=== PATIENT | female | born 1990 | race Caucasian/White ===

== ENCOUNTER 2018-10-04 20:25 | Emergency (ER) | payer MEDICAID, OTHER ==
[2018-10-04 20:34] VITALS: BP 123/80; PULSE 88; RESP 16; TEMP 98.4; O2SAT 99
[2018-10-04] MEDS ORDERED: Povidone Iodine Oint 10% Foilpak UD ONE (21:20)
--- NOTE | 2018-10-04 21:21 | ED PDOC ---
HPI: General Adult Time Seen by Provider: 10/04/18 20:40 Chief Complaint (Nursing): Abnormal Skin Integrity Chief Complaint (Provider): Abnormal Skin Integrity History Per: Patient History/Exam Limitations: no limitations Onset/Duration Of Symptoms: Days (today) Current Symptoms Are (Timing): Still Present Additional Complaint(s): 28 year old female with no significant past medical history presents to the ED with a laceration to the upper left lip that happened at 4 am. Patient reports a metal object fell from the fridge as she was cleaning the counter causing her to sustain the laceration to lip. Patient could not come in earlier because her was working and there was no one home to stay with children. Patient states she applied alcohol on wound to clean it. Last tetanus unknown. PMD: none provided Past Medical History Reviewed: Historical Data, Nursing Documentation, Vital Signs Vital Signs: Last Vital Signs Temp 98.4 F 10/04/18 20:34 Pulse 88 10/04/18 20:34 Resp 16 10/04/18 20:34 BP 123/80 10/04/18 20:34 Pulse Ox 99 10/04/18 20:34 Primary Care Provider: FAMILY PROVIDER,NO - Medical History PMH: No Chronic Diseases - Family History Family History: States: Unknown Family Hx - Home Medications Home Medications: Ambulatory Orders Medication Instructions Recorded Amoxicillin/Clavulanate [Augmentin 1 tab PO Q12H #19 tab 10/04/18 875 MG-125 MG] - Allergies Allergies/Adverse Reactions: Allergies Allergy/AdvReac Type Severity Reaction Status Date / Time No Known Allergies Allergy Verified 10/04/18 20:34 Review of Systems ROS Statement: Except As Marked, All Systems Reviewed And Found Negative Skin: Positive for: Other (lip laceration ) Physical Exam - Reviewed Nursing Documentation Reviewed: Yes Vital Signs Reviewed: Yes - Physical Exam Appears: Positive for: No Acute Distress Head Exam: Positive for: ATRAUMATIC, NORMOCEPHALIC Skin: Positive for: Normal Color, Warm, Dry Eye Exam: Positive for: Normal appearance Extremity: Positive for: Normal ROM (upper and lower) Neurological/Psych: Positive for: Awake, Alert, Oriented (x3) Comments: LIP: 1.5 laceration through the [place] border, less than 0.5 cm deep, noted some yellow clear drainage from area, mild swelling to area - ECG O2 Sat by Pulse Oximetry: 99 (RA) Pulse Ox Interpretation: Normal Medical Decision Making Medical Decision Making: Time: 2049 --Dr. Delatorre, plastics, consulted who will come down to the ED to repair the laceration Time: 2118 --Dr. Delatorre in ED to repair laceration. 21:45 Dr. Delatorre recommends patient to be started on Augmentin. Follow-up in office on Friday. Rx given for Augmentin first dose given in ED. Patient stable to be d/c home. Instructions given on wound care. Patient states understanding and agrees with plan. Scribe Attestation: Documented by Leona Yadav acting as a scribe for Lilly Aquino PA-C. Provider Scribe Attestation: All medical record entries made by the Scribe were at my direction and personally dictated by me. I have reviewed the chart and agree that the record accurately reflects my personal performance of the history, physical exam, medical decision making, and the department course for this patient. I have also personally directed, reviewed, and agree with the discharge instructions and disposition. Disposition - Clinical Impression Clinical Impression: Lip laceration - Patient ED Disposition Is Patient to be Admitted: No Counseled Patient/Family Regarding: Diagnosis, Need For Followup, Rx Given - Disposition Referrals: Vee Delatorre MD [Medical Doctor] - Disposition Time: 21:48 Condition: GOOD Prescriptions: Amoxicillin/Clavulanate [Augmentin 875 MG-125 MG] 1 tab PO Q12H #19 tab Instructions: Wound Care (DC), Laceration Repair With Stitches (DC) Forms: Drip In (Lao) Print Language: QATARI - POA Present On Arrival: None
[2018-10-04] MEDS ORDERED: Amoxicillin-Clav 875-125 mg Tab PO STA (21:42)
[2018-10-04] MEDS ORDERED: Tdap Vaccine 0.5 ml Vial (10-64 yrs) IM ONE ×2 (21:56→22:01)
[2018-10-04] MEDS ORDERED: Amoxicillin-Clav 875-125 mg Tab PO ONE (22:01)
== END 2018-10-04 22:11 | disposition home or self-care (01) ==
LOC: H.ER 20:25
DX: S01.511A Laceration without foreign body of lip, initial encounter (principal); W22.8XXA Striking against or struck by other objects, initial encounter; Y92.89 Other specified places as the place of occurrence of the external cause